=== PATIENT | female | born 1940 | race Hispanic/Latino ===

== ENCOUNTER 2018-02-04 19:27 | Emergency (ER) | payer MEDICARE ==
[2018-02-04 19:28] VITALS: BMI 29.2
--- NOTE | 2018-02-04 20:32 | ED PDOC ---
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 Patient stated he tripped and fell down stairs, approx 6 steps. No LOC (Micheline Rosa) Past Medical History - Provider Review Nursing Documentation Reviewed: Yes - Psychiatric Hx Anxiety: Yes Hx Depression: Yes Hx Emotional Abuse: No Hx Physical Abuse: No Hx Substance Use: No - Surgical History Hx Hysterectomy: Yes - Anesthesia Hx Anesthesia: No - Suicidal Assessment Feels Threatened In Home Enviroment: No <Micheline Rosa - Last Filed: 02/05/18 00:11> Family/Social History - Physician Review Nursing Documentation Reviewed: Yes Smoking Status: Never Smoked Hx Alcohol Use: Yes Hx Substance Use: No Hx Substance Use Treatment: No <Micheline Rosa - Last Filed: 02/05/18 00:11> Allergies/Home Meds <Micheline Rosa - Last Filed: 02/05/18 00:11> <Geoff Gagnon - Last Filed: 02/05/18 00:19> Allergies/Adverse Reactions: Allergies No Known Allergies Allergy (Verified 02/04/18 19:47) Vital Signs Temp Pulse Resp BP Pulse Ox 02/05/18 00:05 89 17 173/99 H 100 02/04/18 23:30 87 173/93 H 02/04/18 22:27 86 17 166/108 H 97 02/04/18 19:37 98.4 F 99 H 18 162/103 H 99 Medical Decision Making Re-evaluation Time: 00:13 Reassessment Condition: Re-examined, Improved <Micheline Rosa - Last Filed: 02/05/18 00:11> <Geoff Gagnon - Last Filed: 02/05/18 00:19> ED Course and Treatment: 02/04/18 23:06 PROCEDURE: LACERATION REPAIR Performed by the emergency provider Location: Right anterior lower leg Length: 8 mm Description: clean wound edges,no foreign bodies Distal CMS: Normal. No deficits. Neurovascularly intact. Anesthesia: 1cc Lidocaine with Epi Preparation: The wound was cleaned with NS and Betadyne. The area was prepped and draped in the usual sterile fashion. Exploration: The wound was explored and no foreign bodies were found. Procedure: The wound was closed with 1 single laye interrupted suture using 3-0 monocryl. There was good approximation. Post-Procedure: Good closure and hemostasis. The patient tolerated the procedure well and there were no complications. CSM remains intact. Post procedure dressing applied. PROCEDURE: LACERATION REPAIR Performed by the emergency provider Location: Left anterior lower leg Length: 2.8 cm Description: clean wound edges,no foreign bodies Distal CMS: Normal. No deficits. Neurovascularly intact. Anesthesia: 1cc Lidocaine with Epi Preparation: The wound was cleaned with NS and Betadyne. The area was prepped and draped in the usual sterile fashion. Exploration: The wound was explored and no foreign bodies were found. Procedure: The wound was closed with 2 vertical mattress sutures and 2 single layer interrupted sutures (total of 4 sutures) using 3-0 monocryl. There was good approximation. Post-Procedure: Good closure and hemostasis. The patient tolerated the procedure well and there were no complications. CSM remains intact. Post procedure dressing applied. 02/04/18 23:58 I spoke with Omari Guerrero regarding CT scan result. Radiologist is recommending MRI with contrast. I told Dr. Guerrero that I recommended observation, but patient declined. Dr. Guerrero recommended patient to see him tomorrow in am and she will arrange out-patient MRI. (Micheline Rosa) - RAD Interpretation Narrative RAD Interpretations (Text): 02/04/18 23:19 EXAM: CT Maxillofacial Without Intravenous Contrast FINDINGS: Bones/joints: No fracture or dislocation. No fracture of the mandible. No fracture of zygomatic bones. Bilateral nasal bones are unremarkable. No evidence of nasal bone fracture. No fracture of maxillary bones. Soft tissues: Large left frontal scalp soft tissue swelling and subcutaneous hematoma. Orbits: Unremarkable. Sinuses: Unremarkable. No air-fluid levels. IMPRESSION: 1. Large left frontal scalp soft tissue swelling and subcutaneous hematoma. No evidence of fracture. 2. No fracture or dislocation. 02/04/18 23:20 EXAM: CT Cervical Spine Without Intravenous Contrast FINDINGS: Vertebrae: No fracture or dislocation. Discs/spinal canal/neural foramina: No disc protrusion or extrusion. No spinal canal stenosis. Soft tissues: Unremarkable. Lung apices: Unremarkable as visualized. IMPRESSION: No fracture or dislocation EXAM: CT Head Without Intravenous Contrast FINDINGS: Brain: 5 mm focal hyperdensity seen in left posterior frontal subcortical white matteron axial image 18. No hemorrhage. Ventricles: Unremarkable. No ventriculomegaly. Bones/joints: See below. Soft tissues: Large left frontal scalp soft tissue swelling and subcutaneous hematoma. No evidence of fracture. Sinuses: Unremarkable as visualized. No acute sinusitis. Mastoid air cells: Unremarkable as visualized. No mastoid effusion. IMPRESSION: 1. Large left frontal scalp soft tissue swelling and subcutaneous hematoma. No evidence of fracture. No evidence of acute intracranial bleed. 2. 5 mm focal hyperdensity seen in left posterior frontal subcortical white matteron axial image 18. This finding is new compared to prior study of 2012. Finding does not appear to represent posttraumatic hemorrhage. Recommend MRI of the brain with contrast for further evaluation. Differential diagnosis includes a cavernous malformation versus hemorrhagic metastatic disease versus a calcified granuloma. 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 / has examined the patient and agrees with the treatment plan. <Geoff Gagnon - Last Filed: 02/05/18 00:19> Disposition/Present on Arrival - Present on Arrival Any Indicators Present on Arrival: No History of DVT/PE: No History of Uncontrolled Diabetes: No Urinary Catheter: No History of Decub. Ulcer: No History Surgical Site Infection Following: None - Disposition Have Diagnosis and Disposition been Completed?: Yes Disposition Time: 00:04 <Micheline Rosa - Last Filed: 02/05/18 00:11> <Geoff Gagnon - Last Filed: 02/05/18 00:19> - Disposition Diagnosis: Forehead contusion, Facial abrasion, Laceration of lower leg Disposition: HOME/ ROUTINE Patient Problems: Current Active Problems Problem Status Onset Facial abrasion Acute Forehead contusion Acute Laceration of lower leg Acute Condition: IMPROVED Discharge Instructions (ExitCare): Skin Abrasions, Laceration Repair With Stitches (DC), Minor Head Injury (DC) Additional Instructions: Call your private doctor for follow up visit tomorrow. You need to have an out- patient MRI with contrast. Return to emergency if symptoms worsen. Referrals: Cesar BAY,Omari Viera MD [Primary Care Provider] - Follow up with primary Forms: [employer] (Urdu)
[2018-02-04 22:28] VITALS: RESP 17
[2018-02-05 00:05] VITALS: BP 173/99; PULSE 89; O2SAT 100
[2018-02-05 00:28] VITALS: TEMP 98
--- NOTE | 2018-02-05 08:33 | CT ---
Date of service: 02/04/2018 PROCEDURE: CT HEAD WITHOUT CONTRAST. HISTORY: head injury s/p fall COMPARISON: 02/10/2012. TECHNIQUE: Axial computed tomography images were obtained through the head/brain without intravenous contrast. Coronal and sagittal reconstructed images. Radiation dose: Total exam DLP = 913.24 mGy-cm. This CT exam was performed using one or more of the following dose reduction techniques: Automated exposure control, adjustment of the mA and/or kV according to patient size, and/or use of iterative reconstruction technique. FINDINGS: HEMORRHAGE: No intracranial hemorrhage. BRAIN: No mass effect or edema. Cortical and cerebellar atrophy, periventricular small vessel disease. VENTRICLES: Unremarkable. No hydrocephalus. CALVARIUM: Unremarkable. PARANASAL SINUSES: Unremarkable as visualized. No significant inflammatory changes. MASTOID AIR CELLS: Unremarkable as visualized. No inflammatory changes. OTHER FINDINGS: Large left frontal hematoma without adjacent calvarial or underlying intracranial abnormality IMPRESSION: No acute intracranial abnormalities. No significant findings to account for the clinical presentation. Large right frontal, supra orbital contusion/hematoma. Otherwise no interval change. Concordant results (preliminary interpretation) provided by [employer]. Procedure Completed: 21:54. Preliminary ([facility]) Report: Dictated and Authenticated: 22:18. Final Interpretation: 08:31. February 05, 2018.
--- NOTE | 2018-02-05 09:20 | CT ---
Date of service: 02/04/2018 PROCEDURE: CT MAXILLOFACIAL BONES WITHOUT CONTRAST HISTORY: nasal pain s/p fall COMPARISON: February 04, 2018. TECHNIQUE: Contiguous axial CT images of the maxillofacial bones were obtained. Coronal and sagittal reformats were generated. Radiation dose: Total exam DLP = mGy-cm. This CT exam was performed using one or more of the following dose reduction techniques: Automated exposure control, adjustment of the mA and/or kV according to patient size, and/or use of iterative reconstruction technique. FINDINGS: NASAL BONES: Unremarkable. ORBITS: Preseptal soft tissue swelling. No globe/retro Conal abnormalities detected. PARANASAL SINUSES/ MASTOIDS: Clear. MAXILLA: Unremarkable. MANDIBLE/ TEMPOROMANDIBULAR JOINTS: Unremarkable. SKULL BASE: Unremarkable. TEMPORAL BONES: Middle ears and mastoid grossly unremarkable. OTHER FINDINGS: Left supraorbital and frontal hematoma/soft tissue contusion. No adjacent underlying calvarial or intracranial abnormalities. IMPRESSION: Left orbital, frontal soft tissue injury including contusion/ hematoma. No adjacent calvarial or underlying intracranial abnormalities. Concordant results (preliminary interpretation) provided by [employer] [facility]. Procedure Completed: 21:57 Preliminary ([facility]) Report: Dictated and Authenticated: 22:25. Final Interpretation: 09:18. February 05, 2018.
--- NOTE | 2018-02-05 09:56 | CT ---
Date of service: 02/04/2018 PROCEDURE: CT Cervical Spine without contrast HISTORY: pain s/p fall COMPARISON: None available. TECHNIQUE: Axial computed tomography images were obtained of the cervical spine without the use of intravenous contrast. Coronal and sagittal reformatted images were created and reviewed. Radiation dose: Total exam DLP = 541 mGy-cm. This CT exam was performed using one or more of the following dose reduction techniques: Automated exposure control, adjustment of the mA and/or kV according to patient size, and/or use of iterative reconstruction technique. FINDINGS: VERTEBRAE: No fracture. Normal alignment. No destructive bony lesion. DISCS/SPINAL CANAL/NEURAL FORAMINA: No significant central canal or neural foraminal stenosis. Discs heights are grossly preserved. PARASPINAL SOFT TISSUES: Unremarkable. OTHER FINDINGS: The report concurs with the preliminary [facility] report IMPRESSION: No acute findings
--- NOTE | 2018-02-05 10:47 | RAD ---
Date of service: 02/04/2018 PROCEDURE: Left Wrist Radiographs. HISTORY: pain s/p fall COMPARISON: None. FINDINGS: BONES: No acute fractures. JOINTS: Normal. No dislocation. SOFT TISSUES: Soft tissue swelling adjacent to the scaphoid OTHER FINDINGS: None. IMPRESSION: Soft tissue swelling without acute articular or osseous abnormality. Concordant results with the preliminary interpretation rendered by the emergency department physician procedure.
--- NOTE | 2018-02-05 10:47 | RAD ---
Date of service: 02/04/2018 PROCEDURE: Left Knee Radiographs. HISTORY: Posttraumatic pain. COMPARISON: None. FINDINGS: BONES: Normal. No fracture. JOINTS: Normal. No osteoarthritis. JOINT EFFUSION: None. OTHER FINDINGS: Soft tissue injury adjacent to the patellar tendon. IMPRESSION: Soft tissue swelling without acute articular or osseous abnormality. Concordant results with the preliminary interpretation rendered by the emergency department physician procedure.
== END 2018-02-05 00:28 | disposition home or self-care (01) ==
LOC: ED 19:27
DX: S00.83XA Contusion of other part of head, initial encounter (principal); S81.811A Laceration without foreign body, right lower leg, initial encounter; S81.812A Laceration without foreign body, left lower leg, initial encounter; W10.9XXA Fall (on) (from) unspecified stairs and steps, initial encounter; Y92.9 Unspecified place or not applicable